=== PATIENT | female | born 1950 | race Caucasian/White ===

== ENCOUNTER 2018-02-18 07:55 | Day surgery (SDC) | payer MEDICARE, OTHER ==
[2018-02-18] MEDS: NS 1,000 ML IV (08:18)
[2018-02-18] MEDS ORDERED: PROPOFOL 200 MG/20 ML VIAL As Ordered (08:52)
[2018-02-18] MEDS ORDERED: METOPROLOL SUCC (TopROL XL) 50MG **XL** TAB PO (09:00)
[2018-02-18] MEDS ORDERED: METOPROLOL SUCC *XL* 25MG TAB (TopROL *XL*) As Ordered (09:02)
[2018-02-18] MEDS ORDERED: LIDOCAINE 2% INJ 100 MG/5 ML SDV (FOR ANES.) As Ordered (09:10)
[2018-02-18] MEDS ORDERED: METOPROLOL SUCC *XL* 25MG TAB (TopROL *XL*) PO (09:30)
== END 2018-02-18 10:15 | disposition home or self-care (01) ==
LOC: M OPP 07:55
DX: K64.0 First degree hemorrhoids (principal); D12.6 Benign neoplasm of colon, unspecified; K57.30 Diverticulosis of large intestine without perforation or abscess without bleeding; Z80.0 Family history of malignant neoplasm of digestive organs; K62.5 Hemorrhage of anus and rectum; R19.4 Change in bowel habit; I10 Essential (primary) hypertension; E78.00 Pure hypercholesterolemia, unspecified; F41.9 Anxiety disorder, unspecified; E03.9 Hypothyroidism, unspecified; Z79.82 Long term (current) use of aspirin; Z79.899 Other long term (current) drug therapy; Z88.8 Allergy status to other drugs, medicaments and biological substances; Z78.0 Asymptomatic menopausal state; Z87.19 Personal history of other diseases of the digestive system
CPT/HCPCS: 45385

== ENCOUNTER 2019-03-25 08:08 | Day surgery (SDC) | payer MEDICARE, OTHER ==
[~2019-03-25] VITALS: Ht 167.6 cm; Wt 86.1 kg
[~2019-03-25 08:08] MED LIST: ASPI81TA26 PO; ATOR1TAB21 PO; DULO1CAP5 PO; GARL1000 PO; GARL10005 PO; LEVO112T2 PO; LIDOCAINE 2% INJ 100 MG/5 ML SDV (FOR ANES.) As Ordered ONE; METO1TAB7 PO; NS 1,000 ML IV ONE; OMEG1CAP16 PO; PROPOFOL 200 MG/20 ML VIAL As Ordered ONE; TRAZ-252 PO; TURM450C PO; TURM500C PO; VITA500030 PO; VITA500046 PO
[2019-03-25] MEDS ORDERED: PROPOFOL 200 MG/20 ML VIAL As Ordered ONE (09:05)
[2019-03-25 09:50] VITALS: BP 122/74
--- NOTE | 2019-03-25 09:50 | ROOR ---
Patient Name: Sherron Rousseau Procedure Date: 03/25/2019 8:55 AM Date of : 1950 Age: 69 Room: [facility] Gender: Female Note Status: Finalized Procedure: Total Colonoscopy to Cecum Indications: High risk colon cancer surveillance: Personal history of adenoma with villous component, Incidental - Rectal bleeding Providers: Jair Chowdary MD Referring MD: Alessandro Jones Np Requesting Provider: Medicines: Monitored Anesthesia Care Complications: No immediate complications. Procedure: Pre-Anesthesia Assessment: - The heart rate, respiratory rate, oxygen saturations, blood pressure, adequacy of pulmonary ventilation, and response to care were monitored throughout the procedure. The Colonoscope was introduced through the anus and advanced to the cecum, identified by appendiceal orifice and ileocecal valve. Findings: The perianal and digital rectal examinations were normal. Non-bleeding internal hemorrhoids were found during retroflexion. The hemorrhoids were small and Grade I (internal hemorrhoids that do not prolapse). Multiple small and large-mouthed diverticula were found in the recto-sigmoid colon, sigmoid colon and descending colon. The exam was otherwise without abnormality on direct and retroflexion views. The terminal ileum appeared normal. Impression: - Non-bleeding internal hemorrhoids. - Diverticulosis in the recto-sigmoid colon, in the sigmoid colon and in the descending colon. - The examination was otherwise normal on direct and retroflexion views. - The examined portion of the ileum was normal. - No specimens collected. - The exam was otherwise normal to the cecum. Recommendation: - Patient has a contact number available for emergencies. The signs and symptoms of potential delayed complications were discussed with the patient. Return to normal activities tomorrow. Written discharge instructions were provided to the patient. - High fiber diet. - Discharge patient to home. - Continue present medications. - Repeat colonoscopy in 5 years for surveillance. - Return to referring physician. - The findings and recommendations were discussed with the patient's family. Jair Chowdary MD Jair Chowdary MD 03/25/2019 9:50:34 AM Electronically signed by Jair Chowdary MD Number of Addenda: 0 Note Initiated On: 03/25/2019 8:55 AM Estimated Blood Loss: Estimated blood loss: none.
== END 2019-03-25 09:53 | disposition home or self-care (01) ==
LOC: M OPP 08:08
PROVIDERS: ATTEND Internal Medicine Gastroenterology
DX: K64.0 First degree hemorrhoids (principal); K57.30 Diverticulosis of large intestine without perforation or abscess without bleeding; K62.5 Hemorrhage of anus and rectum; Z86.010 Personal history of colon polyps; Z09 Encounter for follow-up examination after completed treatment for conditions other than malignant neoplasm; Z79.82 Long term (current) use of aspirin; Z79.899 Other long term (current) drug therapy; Z80.0 Family history of malignant neoplasm of digestive organs; Z88.8 Allergy status to other drugs, medicaments and biological substances

== ENCOUNTER 2022-04-11 10:02 | Inpatient (IN) | payer MEDICARE, OTHER ==
[~2022-04-11] VITALS: Ht 167.6 cm; Wt 86.4 kg
[2022-04-11] VITALS (15 sets, daily range): BP systolic 59–174; BP diastolic 36–104
[~2022-04-11 10:02] MED LIST changes: -LIDOCAINE 2% INJ 100 MG/5 ML SDV (FOR ANES.) As Ordered ONE; -NS 1,000 ML IV ONE; -PROPOFOL 200 MG/20 ML VIAL As Ordered ONE
[2022-04-11] MEDS ORDERED: ETOMIDATE INJ 20MG/10ML VIAL ONE (10:03)
[2022-04-11] MEDS ORDERED: ROCURONIUM BROMIDE 50MG/5ML VIAL ONE (10:03)
[2022-04-11] MEDS ORDERED: TENECTEPLASE 50 MG KIT (TNKase) As Ordered ONE (10:28)
[2022-04-11] MEDS ORDERED: TENECTEPLASE 50 MG KIT (TNKase) IV ONE (10:30)
[2022-04-11 10:42] LABS: HEMATOCRIT 48.3 % (36.0-47.0); HEMOGLOBIN 14.5 g/dl (12.0-15.5); MEAN CORPUSCULAR HEMOGLOBIN 31.7 pg (27.0-33.0); MEAN CORPUSCULAR VOLUME 105.5 fl (80.0-96.0); PLATELET COUNT, AUTOMATED 179 10^3/uL (150-450); RED BLOOD COUNT 4.58 10^6/uL (4.00-5.40); WHITE BLOOD COUNT 21.7 10^3/uL (4.0-10.0)
[2022-04-11] MEDS ORDERED: NOREPINEPHRINE 4MG/4ML AMP As Ordered ONE ×2 (11:00→23:49)
[2022-04-11] MEDS ORDERED: NOREPINEPHRINE 4MG IN D5 250ML 4 MG in IV 1 EA IV SCH ×2 (11:05)
[2022-04-11 11:08] LABS: BILIRUBIN,DIRECT 0.2 MG/DL (<0.4)
[2022-04-11 11:17] LABS: RSV AMPLIFICATION NEGATIVE (NEGATIVE)
[2022-04-11 11:19] LABS: ALBUMIN 3.6 G/DL (3.2-5.2); BILIRUBIN,TOTAL 0.6 MG/DL (0.3-1.2); CALCIUM LEVEL 9.8 MG/DL (8.3-10.6); CREATININE FOR GFR 1.21 MG/DL (0.55-1.30); GLOMERULAR FILTRATION RATE 46.8 (>39); MB/CK RELATIVE INDEX 0.9 (< OR =4); POTASSIUM SERUM 4.5 MMOL/L (3.5-5.1); TOTAL PROTEIN 6.9 G/DL (5.7-8.2)
[2022-04-11 11:33] LABS: ATYPICAL LYMPH 5 % (0-5); BASOPHILS 1 % (0-1); EOSINOPHILS 3 % (0-3); LYMPHOCYTES 27 % (16-44); MONOCYTES 7 % (0-5); NEUTROPHILS 56 % (28-66); PLATELET ESTIMATE NORMAL (NORMAL)
[2022-04-11] MEDS ORDERED: ISOVUE-370 76% 100ML VIAL As Ordered ONE (11:33)
[2022-04-11] MEDS ORDERED: PIPERACILLIN/TAZOBACTAM SOD 4.5 GM in D5W MINI-BAG PLUS 50 ML IV ONE (11:55)
[2022-04-11] MEDS ORDERED: NS 2,480 ML in IV 1 EA IV ONE (11:55)
[2022-04-11] MEDS ORDERED: SODIUM BICARBONATE 8.4% INJ 50ML SYRINGE IV STA (12:25)
[2022-04-11 12:29] LABS: INR 0.99; PROTHROMBIN TIME 13.3 SECONDS (12.5-14.5)
[2022-04-11 12:30] LABS: PARTIAL THROMBOPLASTIN TIME 30.4 SECONDS (24.8-34.2)
[2022-04-11] MEDS ORDERED: MIDAZOLAM INJ 2MG/2ML VIAL (J2250 PER 1MG) IV STA (13:34)
[2022-04-11] MEDS ORDERED: MIDAZOLAM 100MG/100ML-0.9%NACL 100 MG in IV 1 EA IV SCH (13:35)
[2022-04-11] MEDS ORDERED: NS 1,000 ML IV ONE (14:20)
[2022-04-11] MEDS ORDERED: HEPARIN SOD (PORCINE) 5000UNITS/ML 1ML VIAL/SYRINGE IV PRN ×2 (17:15→19:10)
[2022-04-11] MEDS ORDERED: HEPARIN SOD (PORCINE) 5000UNITS/ML 1ML VIAL/SYRINGE IV ONE (17:15)
[2022-04-11] MEDS ORDERED: HEPARIN DRIP 25,000 UNITS in IV 1 EA IV SCH (17:15)
[2022-04-11] MEDS ORDERED: ASPI81TA26 PO (17:52)
[2022-04-11] MEDS ORDERED: DULO1CAP6 PO (17:52)
[2022-04-11] MEDS ORDERED: ATOR40TA75 PO (17:52)
[2022-04-11] MEDS ORDERED: LEVO125T4 PO (17:52)
[2022-04-11] MEDS ORDERED: OMEG10002 PO (18:01)
[2022-04-11] MEDS ORDERED: VITA500030 PO (18:01)
[2022-04-11] MEDS ORDERED: HOME MED LIST COMPLETE! XX SCH (18:05)
[2022-04-11] MEDS ORDERED: VANCOMYCIN HCL 1,000 MG, VIAL MATE ADAPTER 1 EACH in NS 250 ML IV SCH (18:15)
[2022-04-11 19:50] LABS: CHOLESTEROL RISK RATIO 2.34 (<5); HDL CHOLESTEROL 61.4 MG/DL (>40); LDL CHOLESTEROL 66.4 MG/DL (<100)
[2022-04-11 19:54] LABS: FREE T4 1.09 NG/DL (0.89-1.76); THYROID STIMULATING HORMONE 1.481 uIU/ML (0.55-4.78)
[2022-04-11] MEDS: IPRATROPIUM 0.5MG/ALBUTEROL 2.5MG INH SOL UD 3ML (DUONEB) NEB SCH (20:00)
[2022-04-11 20:33] LABS: CALCIUM LEVEL 8.4 MG/DL (8.3-10.6); CREATININE FOR GFR 1.06 MG/DL (0.55-1.30); GLOMERULAR FILTRATION RATE 54.6 (>39); POTASSIUM SERUM 4.5 MMOL/L (3.5-5.1)
[2022-04-11] MEDS: AZITHROMYCIN INJ 500 MG, VIAL MATE ADAPTER 1 EACH in NS 250 ML IV SCH (21:44)
[2022-04-11] MEDS: NS 1,000 ML IV SCH (21:44)
[2022-04-11] MEDS: PANTOPRAZOLE 40MG VIAL IV SCH (21:44)
[2022-04-11] MEDS: MIDAZOLAM 100MG/100ML-0.9%NACL 100 MG in IV 1 EA IV SCH ×2 (21:45→22:49)
[2022-04-11] MEDS ORDERED: AZTREONAM 2 GM in D5W MINI-BAG PLUS 100 ML IV SCH (22:00)
[2022-04-11] MEDS: propofoL 1,000 MG in IV 1 EA IV SCH (22:57)
[2022-04-11 23:12] LABS: HEMATOCRIT 35.8 % (36.0-47.0); MEAN CORPUSCULAR HEMOGLOBIN 31.7 pg (27.0-33.0); MEAN CORPUSCULAR HGB CONC 31.3 g/dl (32.0-36.5); MEAN CORPUSCULAR VOLUME 101.4 fl (80.0-96.0); PLATELET COUNT, AUTOMATED 203 10^3/uL (150-450); RED BLOOD COUNT 3.53 10^6/uL (4.00-5.40); WHITE BLOOD COUNT 12.9 10^3/uL (4.0-10.0)
[2022-04-11 23:13] LABS: HEMOGLOBIN 11.2 g/dl (12.0-15.5)
[2022-04-11] MEDS: METOPROLOL TART 12.5 MG PER 1/2 TAB PO SCH (23:45)
[2022-04-12] VITALS (106 sets, daily range): BP systolic 53–148; BP diastolic 27–84
[2022-04-12] MEDS: AZTREONAM 2 GM in D5W MINI-BAG PLUS 100 ML IV SCH ×4 (00:05→23:58)
[2022-04-12] MEDS: NOREPINEPHRINE BITARTRATE 16 MG in D5W 484 ML IV SCH (00:09)
[2022-04-12] MEDS ORDERED: VANCOMYCIN HCL 1,000 MG, VIAL MATE ADAPTER 1 EACH in NS 250 ML IV ONE ×2 (01:00→02:00)
[2022-04-12] MEDS: CHLORHEXIDINE GLUCONATE 0.12 % 15ML UDC (PERIDEX ORAL RINSE) MT SCH ×3 (01:22→20:08)
[2022-04-12] MEDS ORDERED: NS 250 ML IV ONE ×3 (01:25→04:10)
[2022-04-12] MEDS ORDERED: SODIUM BICARBONATE 8.4% INJ 50ML SYRINGE ONE (03:02)
[2022-04-12] MEDS ORDERED: EPINEPHrine 1MG/10ML SYRINGE 1.5IN ONE (03:02)
[2022-04-12] MEDS: NS 1,000 ML IV SCH (04:14)
[2022-04-12 05:00] LABS: HEMATOCRIT 27.2 % (36.0-47.0); MEAN CORPUSCULAR HEMOGLOBIN 32.6 pg (27.0-33.0); MEAN CORPUSCULAR HGB CONC 32.4 g/dl (32.0-36.5); MEAN CORPUSCULAR VOLUME 100.7 fl (80.0-96.0); PLATELET COUNT, AUTOMATED 179 10^3/uL (150-450); WHITE BLOOD COUNT 13.1 10^3/uL (4.0-10.0)
[2022-04-12 05:03] LABS: HEMOGLOBIN 8.8 g/dl (12.0-15.5)
[2022-04-12 05:24] LABS: ALBUMIN 2.2 G/DL (3.2-5.2); ALKALINE PHOSPHATASE 132 U/L (46-116); ALT/SGPT 244 U/L (7.0-40); AST/SGOT 326 U/L (<34); BILIRUBIN,TOTAL 0.4 MG/DL (0.3-1.2); BLOOD UREA NITROGEN 21 MG/DL (9-23); CALCIUM LEVEL 7.4 MG/DL (8.3-10.6); CARBON DIOXIDE LEVEL 22 MMOL/L (20-31); CHLORIDE LEVEL 115 MMOL/L (98-107); CREATININE FOR GFR 0.95 MG/DL (0.55-1.30); GLOMERULAR FILTRATION RATE > 60.0 (>39); GLUCOSE, FASTING 144 MG/DL (74-106); POTASSIUM SERUM 4.6 MMOL/L (3.5-5.1); SODIUM LEVEL 148 MMOL/L (136-145); TOTAL PROTEIN 4.3 G/DL (5.7-8.2)
[2022-04-12 05:48] LABS: ABG BASE EXCESS -2.9 (-2.0-2.0); ABG HCO3 20.4 MEQ/L (22.0-26.0); ABG O2 SATURATION 98.8 % (95.0-99.0); ABG PARTIAL PRESSURE O2 157.3 mmHg (75.0-100.0); ABG STANDARD HCO3 22.1 MEQ/L (22.0-26.0); ABG TOTAL CO2 21.4 MEQ/L (23.0-31.0); ABG pH (ARTERIAL) 7.451 UNITS (7.350-7.450)
[2022-04-12] MEDS: IPRATROPIUM 0.5MG/ALBUTEROL 2.5MG INH SOL UD 3ML (DUONEB) NEB SCH ×4 (07:40→19:26)
[2022-04-12] MEDS ORDERED: ASPIRIN 81MG CHEW TABLET PO ONE (08:25)
[2022-04-12] MEDS: ACETAMINOPHEN 325MG/10.15ML UDC GT PRN ×2 (08:45→15:52)
[2022-04-12] MEDS: fentaNYL CITRATE/NaCl 1,000 MCG in IV 1 EA IV SCH ×2 (08:47→23:12)
[2022-04-12] MEDS: METOPROLOL TART 12.5 MG PER 1/2 TAB PO SCH ×2 (08:48→20:07)
[2022-04-12] MEDS: ATORVASTATIN 20 MG TAB PO SCH (08:49)
[2022-04-12] MEDS ORDERED: ASPIRIN 81MG ENTERIC TABLET PO SCH (09:00)
[2022-04-12] MEDS ORDERED: NS 500 ML IV ONE (10:20)
[2022-04-12] MEDS: propofoL 1,000 MG in IV 1 EA IV SCH ×2 (10:40→15:52)
[2022-04-12 11:09] LABS: CENTRAL VEN BASE EXCESS -4.1
[2022-04-12] MEDS: VASOPRESSIN INJ 20 UNITS in NS 499 ML IV SCH ×2 (11:09→18:38)
[2022-04-12] MEDS: MIDAZOLAM 100MG/100ML-0.9%NACL 100 MG in IV 1 EA IV SCH (11:24)
[2022-04-12] MEDS: HYDROCORTISONE 100 MG/2 ML VIAL (J1720 PER 1) IV SCH ×2 (11:25→20:07)
[2022-04-12] MEDS: dexmedeTOMidine 200 MCG in IV 1 EA IV SCH (16:10)
[2022-04-12] MEDS ORDERED: ACETAMINOPHEN 1000MG 100ML IV BAG IV ONE (16:15)
[2022-04-12] MEDS: PANTOPRAZOLE 40MG VIAL IV SCH (18:39)
[2022-04-12] MEDS: AZITHROMYCIN INJ 500 MG, VIAL MATE ADAPTER 1 EACH in NS 250 ML IV SCH (20:07)
[2022-04-12] MEDS: VANCOMYCIN HCL 750 MG, VIAL MATE ADAPTER 1 EACH in D5W 250 ML IV SCH (21:18)
[2022-04-12] MEDS: VANCOMYCIN HCL 500 MG in D5W MINI-BAG PLUS 100 ML IV SCH (22:37)
[2022-04-13] VITALS (102 sets, daily range): BP systolic 105–323; BP diastolic 44–323
[2022-04-13] MEDS ORDERED: ACETAMINOPHEN 1000MG 100ML IV BAG IV PRN
[2022-04-13] MEDS: dexmedeTOMidine 200 MCG in IV 1 EA IV SCH ×3 (00:35→22:38)
[2022-04-13] MEDS: NOREPINEPHRINE BITARTRATE 16 MG in D5W 484 ML IV SCH (01:08)
[2022-04-13] MEDS ORDERED: GLUCAGON INJ 1MG VIAL SC PRN (02:00)
[2022-04-13] MEDS ORDERED: GLUCOSE 4GM CHEW TABLET PO PRN (02:00)
[2022-04-13] MEDS: VASOPRESSIN INJ 20 UNITS in NS 499 ML IV SCH ×3 (02:03→17:32)
[2022-04-13] MEDS: HYDROCORTISONE 100 MG/2 ML VIAL (J1720 PER 1) IV SCH ×3 (03:48→19:52)
[2022-04-13 05:57] LABS: ABG HCO3 18.2 MEQ/L (22.0-26.0); ABG O2 SATURATION 98.9 % (95.0-99.0); ABG PARTIAL PRESSURE CO2 34.4 mmHg (35.0-45.0); ABG PARTIAL PRESSURE O2 210.4 mmHg (75.0-100.0); ABG STANDARD HCO3 18.6 MEQ/L (22.0-26.0); ABG TOTAL CO2 19.2 MEQ/L (23.0-31.0); ABG pH (ARTERIAL) 7.341 UNITS (7.350-7.450)
[2022-04-13 06:05] LABS: CK-MB VALUE MASS 2.4 NG/ML (<3.6)
[2022-04-13 06:07] LABS: MAGNESIUM LEVEL 1.4 MG/DL (1.8-2.4)
[2022-04-13 06:20] LABS: ALBUMIN 1.7 G/DL (3.2-5.2); BILIRUBIN,TOTAL 0.2 MG/DL (0.3-1.2); CALCIUM LEVEL 6.4 MG/DL (8.3-10.6); CREATININE FOR GFR 2.28 MG/DL (0.55-1.30); GLOMERULAR FILTRATION RATE 22.5 (>39); MB/CK RELATIVE INDEX 1.18 (< OR =4); POTASSIUM SERUM 4.5 MMOL/L (3.5-5.1); TOTAL PROTEIN 3.8 G/DL (5.7-8.2)
[2022-04-13] MEDS: INSULIN LISPRO (NovoLOG) PER UNIT SC SCH ×4 (06:27→18:14)
[2022-04-13 06:51] LABS: BASO % 0.1 % (0.0-1.0); EOS % 0.1 % (0.0-3.0); LYMPH # 2.9 10^3/uL (1.5-5.0); LYMPH % 15.4 % (24.0-44.0); MEAN CORPUSCULAR HEMOGLOBIN 32.3 pg (27.0-33.0); MEAN CORPUSCULAR HGB CONC 30.7 g/dl (32.0-36.5); MEAN CORPUSCULAR VOLUME 105.1 fl (80.0-96.0); MONO # 1.2 10^3/uL (0.0-0.8); MONO % 6.3 % (2.0-8.0); NEUTROPHILS # 14.5 10^3/uL (1.5-8.5); NEUTROPHILS % 76.5 % (36.0-66.0); PLATELET COUNT, AUTOMATED 190 10^3/uL (150-450); RED BLOOD COUNT 1.58 10^6/uL (4.00-5.40); WHITE BLOOD COUNT 18.9 10^3/uL (4.0-10.0)
[2022-04-13 06:54] LABS: HEMATOCRIT 16.6 % (36.0-47.0); HEMOGLOBIN 5.1 g/dl (12.0-15.5)
[2022-04-13] MEDS: IPRATROPIUM 0.5MG/ALBUTEROL 2.5MG INH SOL UD 3ML (DUONEB) NEB SCH ×4 (07:31→20:10)
[2022-04-13] MEDS ORDERED: FUROSEMIDE 100MG/10ML VIAL IV ONE ×2 (08:05→13:00)
[2022-04-13] MEDS: CHLORHEXIDINE GLUCONATE 0.12 % 15ML UDC (PERIDEX ORAL RINSE) MT SCH ×2 (08:07→21:15)
[2022-04-13] MEDS: AZTREONAM 2 GM in D5W MINI-BAG PLUS 100 ML IV SCH (08:07)
[2022-04-13] MEDS: ATORVASTATIN 20 MG TAB PO SCH (08:08)
[2022-04-13] MEDS: METOPROLOL TART 12.5 MG PER 1/2 TAB PO SCH ×2 (08:09→21:15)
[2022-04-13] MEDS ORDERED: VASOPRESSIN INJ 20UNITS/ML 1ML VIAL As Ordered ONE (10:02)
[2022-04-13] MEDS: propofoL 1,000 MG in IV 1 EA IV SCH ×2 (10:40→22:21)
[2022-04-13] MEDS: fentaNYL CITRATE/NaCl 1,000 MCG in IV 1 EA IV SCH ×2 (12:06→22:38)
[2022-04-13] MEDS: SODIUM BICARBONATE 150 MEQ in STERILE WATER LITER BAG 1,000 ML IV SCH ×2 (12:12→22:50)
[2022-04-13 13:34] LABS: MEAN CORPUSCULAR HEMOGLOBIN 26.8 pg (27.0-33.0); MEAN CORPUSCULAR HGB CONC 32.6 g/dl (32.0-36.5); MEAN CORPUSCULAR VOLUME 82.2 fl (80.0-96.0); PLATELET COUNT, AUTOMATED 143 10^3/uL (150-450); RED BLOOD COUNT 2.13 10^6/uL (4.00-5.40); WHITE BLOOD COUNT 14.1 10^3/uL (4.0-10.0)
[2022-04-13 13:39] LABS: HEMATOCRIT 17.5 % (36.0-47.0); HEMOGLOBIN 5.7 g/dl (12.0-15.5)
[2022-04-13] MEDS: AZTREONAM 1 GM in D5W MINI-BAG PLUS 50 ML IV SCH (17:32)
[2022-04-13] MEDS: MIDAZOLAM 100MG/100ML-0.9%NACL 100 MG in IV 1 EA IV SCH (18:00)
[2022-04-13] MEDS ORDERED: FUROSEMIDE 40MG/4ML VIAL IV ONE (18:00)
[2022-04-13] MEDS: PANTOPRAZOLE 40MG VIAL IV SCH (18:14)
[2022-04-13] MEDS: AZITHROMYCIN INJ 500 MG, VIAL MATE ADAPTER 1 EACH in NS 250 ML IV SCH (19:54)
[2022-04-13] MEDS: VANCOMYCIN HCL 750 MG, VIAL MATE ADAPTER 1 EACH in D5W 250 ML IV SCH (21:00)
[2022-04-13] MEDS: POLYVINYL ALCOHOL OPHTH SOLN 15ML (LIQUITEARS) OU SCH (21:15)
[2022-04-13 22:10] LABS: HEMATOCRIT 24.3 % (36.0-47.0); MEAN CORPUSCULAR HEMOGLOBIN 28.2 pg (27.0-33.0); MEAN CORPUSCULAR HGB CONC 33.7 g/dl (32.0-36.5); MEAN CORPUSCULAR VOLUME 83.5 fl (80.0-96.0); RED BLOOD COUNT 2.91 10^6/uL (4.00-5.40); WHITE BLOOD COUNT 13.7 10^3/uL (4.0-10.0)
[2022-04-13 22:29] LABS: MAGNESIUM LEVEL 1.2 MG/DL (1.8-2.4)
[2022-04-13 22:36] LABS: CALCIUM LEVEL 6.2 MG/DL (8.3-10.6); CREATININE FOR GFR 1.71 MG/DL (0.55-1.30); GLOMERULAR FILTRATION RATE 31.4 (>39); POTASSIUM SERUM 3.2 MMOL/L (3.5-5.1)
[2022-04-13 22:42] LABS: HEMOGLOBIN 8.2 g/dl (12.0-15.5)
[2022-04-13] MEDS: VANCOMYCIN HCL 500 MG in D5W MINI-BAG PLUS 100 ML IV SCH (22:50)
[2022-04-13 22:53] LABS: PLATELET COUNT, AUTOMATED 98 10^3/uL (150-450)
[2022-04-13] MEDS: MAG SULF 1GM/100ML (MAG RUN) 1 GM in IV 1 EA IV SCH (23:24)
[2022-04-14] VITALS (56 sets, daily range): BP systolic 98–208; BP diastolic 52–118
[2022-04-14] MEDS: INSULIN LISPRO (NovoLOG) PER UNIT SC SCH ×5 (00:08→23:55)
[2022-04-14] MEDS: MAG SULF 1GM/100ML (MAG RUN) 1 GM in IV 1 EA IV SCH ×2 (00:08→01:59)
[2022-04-14] MEDS: AZTREONAM 1 GM in D5W MINI-BAG PLUS 50 ML IV SCH ×3 (00:08→15:53)
[2022-04-14] MEDS: NOREPINEPHRINE BITARTRATE 16 MG in D5W 484 ML IV SCH (00:09)
[2022-04-14] MEDS ORDERED: MIDAZOLAM INJ 2MG/2ML VIAL (J2250 PER 1MG) As Ordered ONE (02:18)
[2022-04-14] MEDS: KCL 10MEQ/100ML SWI (KRUN) 10 MEQ in IV 1 EA IV SCH ×3 (02:19→03:56)
[2022-04-14] MEDS: VASOPRESSIN INJ 20 UNITS in NS 499 ML IV SCH ×2 (02:40→04:24)
[2022-04-14] MEDS: MIDAZOLAM INJ 2MG/2ML VIAL (J2250 PER 1MG) IV PRN ×5 (03:29→21:49)
[2022-04-14] MEDS: propofoL 1,000 MG in IV 1 EA IV SCH (03:50)
[2022-04-14] MEDS: HYDROCORTISONE 100 MG/2 ML VIAL (J1720 PER 1) IV SCH ×3 (03:56→19:55)
[2022-04-14] MEDS: dexmedeTOMidine 200 MCG in IV 1 EA IV SCH ×9 (04:25→22:56)
[2022-04-14 05:37] LABS: ABG BASE EXCESS 0.5 (-2.0-2.0); ABG HCO3 24.4 MEQ/L (22.0-26.0); ABG O2 SATURATION 98.1 % (95.0-99.0); ABG PARTIAL PRESSURE CO2 36.4 mmHg (35.0-45.0); ABG PARTIAL PRESSURE O2 125.2 mmHg (75.0-100.0); ABG TOTAL CO2 25.6 MEQ/L (23.0-31.0); ABG pH (ARTERIAL) 7.445 UNITS (7.350-7.450)
[2022-04-14 05:45] LABS: BASO % 0.2 % (0.0-1.0); EOS % 0.1 % (0.0-3.0); HEMATOCRIT 22.1 % (36.0-47.0); HEMOGLOBIN 7.6 g/dl (12.0-15.5); LYMPH # 1.3 10^3/uL (1.5-5.0); MEAN CORPUSCULAR HEMOGLOBIN 28.5 pg (27.0-33.0); MEAN CORPUSCULAR HGB CONC 34.4 g/dl (32.0-36.5); MEAN CORPUSCULAR VOLUME 82.8 fl (80.0-96.0); MONO # 0.6 10^3/uL (0.0-0.8); MONO % 4.8 % (2.0-8.0); NEUTROPHILS # 10.4 10^3/uL (1.5-8.5); NEUTROPHILS % 83.7 % (36.0-66.0); RED BLOOD COUNT 2.67 10^6/uL (4.00-5.40); WHITE BLOOD COUNT 12.4 10^3/uL (4.0-10.0)
[2022-04-14 05:55] LABS: PLATELET COUNT, AUTOMATED 92 10^3/uL (150-450)
[2022-04-14 06:13] LABS: ALBUMIN 1.6 G/DL (3.2-5.2); BILIRUBIN,TOTAL 0.5 MG/DL (0.3-1.2); CALCIUM LEVEL 6.1 MG/DL (8.3-10.6); CK-MB VALUE MASS 1.5 NG/ML (<3.6); CREATININE FOR GFR 1.42 MG/DL (0.55-1.30); GLOMERULAR FILTRATION RATE 38.9 (>39); MB/CK RELATIVE INDEX 0.35 (< OR =4); POTASSIUM SERUM 3.3 MMOL/L (3.5-5.1); TOTAL PROTEIN 3.7 G/DL (5.7-8.2)
[2022-04-14 06:56] LABS: MAGNESIUM LEVEL 1.7 MG/DL (1.8-2.4)
[2022-04-14] MEDS ORDERED: MAG SULF 1GM/100ML (MAG RUN) 1 GM in IV 1 EA IV ONE (07:50)
[2022-04-14] MEDS: IPRATROPIUM 0.5MG/ALBUTEROL 2.5MG INH SOL UD 3ML (DUONEB) NEB SCH ×4 (08:40→19:22)
[2022-04-14] MEDS: ATORVASTATIN 20 MG TAB PO SCH (09:01)
[2022-04-14] MEDS: METOPROLOL TART 12.5 MG PER 1/2 TAB PO SCH ×2 (09:01→21:03)
[2022-04-14] MEDS: POLYVINYL ALCOHOL OPHTH SOLN 15ML (LIQUITEARS) OU SCH ×3 (09:02→21:03)
[2022-04-14] MEDS: CHLORHEXIDINE GLUCONATE 0.12 % 15ML UDC (PERIDEX ORAL RINSE) MT SCH ×2 (09:02→21:03)
[2022-04-14] MEDS ORDERED: POTASSIUM CHLORIDE 10% LIQ 20MEQ/15ML UDC PO ONE (10:00)
[2022-04-14] MEDS: fentaNYL CITRATE/NaCl 1,000 MCG in IV 1 EA IV SCH (12:49)
[2022-04-14] MEDS ORDERED: MIDAZOLAM INJ 2MG/2ML VIAL (J2250 PER 1MG) IV PRN (17:00)
[2022-04-14] MEDS: PANTOPRAZOLE 40MG VIAL IV SCH (18:14)
[2022-04-14] MEDS: METOPROLOL 5 MG/5 ML VIAL IV PRN (19:35)
[2022-04-14] MEDS ORDERED: LORazepam 2 MG/ML VIAL IV STA (19:45)
[2022-04-14] MEDS: AZITHROMYCIN INJ 500 MG, VIAL MATE ADAPTER 1 EACH in NS 250 ML IV SCH (19:55)
[2022-04-14] MEDS: VANCOMYCIN HCL 750 MG, VIAL MATE ADAPTER 1 EACH in D5W 250 ML IV SCH (22:06)
[2022-04-14] MEDS: VANCOMYCIN HCL 500 MG in D5W MINI-BAG PLUS 100 ML IV SCH (23:41)
[2022-04-15] VITALS (80 sets, daily range): BP systolic 94–209; BP diastolic 51–120
[2022-04-15] MEDS: dexmedeTOMidine 200 MCG in IV 1 EA IV SCH ×7 (00:57→12:39)
[2022-04-15] MEDS: MIDAZOLAM INJ 2MG/2ML VIAL (J2250 PER 1MG) IV PRN (00:58)
[2022-04-15] MEDS: AZTREONAM 1 GM in D5W MINI-BAG PLUS 50 ML IV SCH ×4 (01:05→23:52)
[2022-04-15] MEDS: fentaNYL CITRATE/NaCl 1,000 MCG in IV 1 EA IV SCH (02:06)
[2022-04-15] MEDS: HYDROCORTISONE 100 MG/2 ML VIAL (J1720 PER 1) IV SCH (03:28)
[2022-04-15] MEDS: LORazepam 2 MG/ML VIAL IV PRN ×3 (03:29→09:28)
[2022-04-15 03:59] LABS: BASO % 0.2 % (0.0-1.0); EOS % 0.1 % (0.0-3.0); HEMOGLOBIN 7.1 g/dl (12.0-15.5); LYMPH % 8.2 % (24.0-44.0); MEAN CORPUSCULAR HEMOGLOBIN 28.3 pg (27.0-33.0); MEAN CORPUSCULAR VOLUME 83.3 fl (80.0-96.0); MONO # 0.8 10^3/uL (0.0-0.8); MONO % 6.5 % (2.0-8.0); NEUTROPHILS # 9.5 10^3/uL (1.5-8.5); NEUTROPHILS % 82.6 % (36.0-66.0); RED BLOOD COUNT 2.51 10^6/uL (4.00-5.40); WHITE BLOOD COUNT 11.5 10^3/uL (4.0-10.0)
[2022-04-15 04:06] LABS: HEMATOCRIT 20.9 % (36.0-47.0); PLATELET COUNT, AUTOMATED 81 10^3/uL (150-450)
[2022-04-15 04:38] LABS: MAGNESIUM LEVEL 2.2 MG/DL (1.8-2.4)
[2022-04-15 04:52] LABS: ALBUMIN 1.9 G/DL (3.2-5.2); ALKALINE PHOSPHATASE 91 U/L (46-116); ALT/SGPT 69 U/L (7.0-40); AST/SGOT 47 U/L (<34); BILIRUBIN,TOTAL 0.7 MG/DL (0.3-1.2); BLOOD UREA NITROGEN 28 MG/DL (9-23); CARBON DIOXIDE LEVEL 26 MMOL/L (20-31); CHLORIDE LEVEL 110 MMOL/L (98-107); CREATININE FOR GFR 0.82 MG/DL (0.55-1.30); GLOMERULAR FILTRATION RATE > 60.0 (>39); GLUCOSE, FASTING 142 MG/DL (74-106); POTASSIUM SERUM 3.6 MMOL/L (3.5-5.1); SODIUM LEVEL 142 MMOL/L (136-145); TOTAL PROTEIN 4.3 G/DL (5.7-8.2)
[2022-04-15 06:28] LABS: ABG BASE EXCESS -7.5 (-2.0-2.0); ABG HCO3 15.1 MEQ/L (22.0-26.0); ABG O2 SATURATION 97.7 % (95.0-99.0); ABG PARTIAL PRESSURE O2 122.7 mmHg (75.0-100.0); ABG STANDARD HCO3 18.2 MEQ/L (22.0-26.0); ABG TOTAL CO2 15.6 MEQ/L (23.0-31.0); ABG pH (ARTERIAL) 7.526 UNITS (7.350-7.450)
[2022-04-15 06:31] LABS: ABG PARTIAL PRESSURE CO2 18.6 mmHg (35.0-45.0)
[2022-04-15] MEDS: METOPROLOL 5 MG/5 ML VIAL IV PRN ×2 (06:31→07:53)
[2022-04-15] MEDS: INSULIN LISPRO (NovoLOG) PER UNIT SC SCH ×4 (06:37→23:52)
[2022-04-15] MEDS: IPRATROPIUM 0.5MG/ALBUTEROL 2.5MG INH SOL UD 3ML (DUONEB) NEB SCH ×4 (07:51→18:57)
[2022-04-15] MEDS: CHLORHEXIDINE GLUCONATE 0.12 % 15ML UDC (PERIDEX ORAL RINSE) MT SCH ×2 (08:26→21:17)
[2022-04-15] MEDS: ATORVASTATIN 20 MG TAB PO SCH (08:27)
[2022-04-15] MEDS: METOPROLOL TART 12.5 MG PER 1/2 TAB PO SCH (08:27)
[2022-04-15] MEDS: POLYVINYL ALCOHOL OPHTH SOLN 15ML (LIQUITEARS) OU SCH ×3 (08:27→21:18)
[2022-04-15] MEDS ORDERED: POTASSIUM CHLORIDE 10MEQ SR TABLET PO ONE (08:45)
[2022-04-15] MEDS ORDERED: ASPIRIN 81MG ENTERIC TABLET PO SCH (09:00)
[2022-04-15] MEDS ORDERED: POTASSIUM CHLORIDE 10% LIQ 20MEQ/15ML UDC PO ONE (09:05)
[2022-04-15] MEDS ORDERED: FUROSEMIDE 100MG/10ML VIAL IV ONE (12:10)
[2022-04-15] MEDS ORDERED: PROPOFOL 1,000 MG/100 ML VIAL As Ordered ONE (12:54)
[2022-04-15] MEDS: propofoL 1,000 MG in IV 1 EA IV SCH ×2 (12:58→22:58)
[2022-04-15] MEDS: HEPARIN DRIP 25,000 UNITS in IV 1 EA IV SCH (14:02)
[2022-04-15] MEDS: ASPIRIN 81MG CHEW TABLET PEG SCH (16:16)
[2022-04-15] MEDS: PANTOPRAZOLE 40MG VIAL IV SCH (18:08)
[2022-04-15] MEDS: METOPROLOL TART 50 MG TAB PO SCH (18:11)
[2022-04-15] MEDS: fentaNYL 100 MCG/2 ML INJECTION IV PRN (19:03)
[2022-04-15] MEDS ORDERED: HEPARIN SOD (PORCINE) 5000UNITS/ML 1ML VIAL/SYRINGE IV PRN (19:25)
[2022-04-15] MEDS ORDERED: HEPARIN DRIP 25,000 UNITS in IV 1 EA IV SCH (19:25)
[2022-04-15] MEDS: VANCOMYCIN HCL 750 MG, VIAL MATE ADAPTER 1 EACH in D5W 250 ML IV SCH (21:18)
[2022-04-15] MEDS ORDERED: METOPROLOL TART 25 MG TABLET PO ONE (21:45)
[2022-04-15] MEDS: VANCOMYCIN HCL 500 MG in D5W MINI-BAG PLUS 100 ML IV SCH (21:51)
[2022-04-16] VITALS (41 sets, daily range): BP systolic 133–189; BP diastolic 69–97
[2022-04-16] MEDS: propofoL 1,000 MG in IV 1 EA IV SCH ×4 (02:36→21:39)
[2022-04-16 03:53] LABS: INR 1.14; PROTHROMBIN TIME 14.8 SECONDS (12.5-14.5)
[2022-04-16 03:55] LABS: PARTIAL THROMBOPLASTIN TIME 106.2 SECONDS (24.8-34.2)
[2022-04-16 05:23] LABS: BASO % 0.3 % (0.0-1.0); EOS # 0.3 10^3/uL (0.0-0.5); EOS % 1.9 % (0.0-3.0); HEMATOCRIT 22.5 % (36.0-47.0); HEMOGLOBIN 7.7 g/dl (12.0-15.5); LYMPH # 2.5 10^3/uL (1.5-5.0); LYMPH % 18.6 % (24.0-44.0); MEAN CORPUSCULAR HEMOGLOBIN 29.3 pg (27.0-33.0); MEAN CORPUSCULAR HGB CONC 34.2 g/dl (32.0-36.5); MEAN CORPUSCULAR VOLUME 85.6 fl (80.0-96.0); MONO # 0.9 10^3/uL (0.0-0.8); MONO % 6.6 % (2.0-8.0); NEUTROPHILS # 9.3 10^3/uL (1.5-8.5); NEUTROPHILS % 68.9 % (36.0-66.0); PLATELET COUNT, AUTOMATED 132 10^3/uL (150-450); RED BLOOD COUNT 2.63 10^6/uL (4.00-5.40); WHITE BLOOD COUNT 13.4 10^3/uL (4.0-10.0)
[2022-04-16 05:50] LABS: ABG BASE EXCESS 1.7 (-2.0-2.0); ABG HCO3 24.6 MEQ/L (22.0-26.0); ABG PARTIAL PRESSURE CO2 31.4 mmHg (35.0-45.0); ABG PARTIAL PRESSURE O2 112.3 mmHg (75.0-100.0); ABG TOTAL CO2 25.5 MEQ/L (23.0-31.0); ABG pH (ARTERIAL) 7.511 UNITS (7.350-7.450)
[2022-04-16 05:55] LABS: MAGNESIUM LEVEL 2.1 MG/DL (1.8-2.4)
[2022-04-16 05:57] LABS: ALBUMIN 2.2 G/DL (3.2-5.2); ALKALINE PHOSPHATASE 98 U/L (46-116); ALT/SGPT 62 U/L (7.0-40); AST/SGOT 63 U/L (<34); BILIRUBIN,TOTAL 0.9 MG/DL (0.3-1.2); BLOOD UREA NITROGEN 19 MG/DL (9-23); CALCIUM LEVEL 7.5 MG/DL (8.3-10.6); CARBON DIOXIDE LEVEL 23 MMOL/L (20-31); CHLORIDE LEVEL 110 MMOL/L (98-107); CREATININE FOR GFR 0.71 MG/DL (0.55-1.30); GLOMERULAR FILTRATION RATE > 60.0 (>39); GLUCOSE, FASTING 100 MG/DL (74-106); POTASSIUM SERUM 3.5 MMOL/L (3.5-5.1); SODIUM LEVEL 144 MMOL/L (136-145); TOTAL PROTEIN 4.3 G/DL (5.7-8.2)
[2022-04-16] MEDS: INSULIN LISPRO (NovoLOG) PER UNIT SC SCH ×3 (06:00→18:00)
[2022-04-16] MEDS: IPRATROPIUM 0.5MG/ALBUTEROL 2.5MG INH SOL UD 3ML (DUONEB) NEB SCH ×4 (07:14→19:31)
[2022-04-16] MEDS: AZTREONAM 1 GM in D5W MINI-BAG PLUS 50 ML IV SCH (07:39)
[2022-04-16] MEDS: HEPARIN DRIP 25,000 UNITS in IV 1 EA IV SCH ×2 (08:54→20:41)
[2022-04-16] MEDS: CHLORHEXIDINE GLUCONATE 0.12 % 15ML UDC (PERIDEX ORAL RINSE) MT SCH ×2 (09:08→20:14)
[2022-04-16] MEDS: ASPIRIN 81MG CHEW TABLET PEG SCH (09:08)
[2022-04-16] MEDS: ATORVASTATIN 20 MG TAB PO SCH (09:09)
[2022-04-16] MEDS: METOPROLOL TART 50 MG TAB PO SCH ×2 (09:09→20:14)
[2022-04-16] MEDS: POLYVINYL ALCOHOL OPHTH SOLN 15ML (LIQUITEARS) OU SCH ×3 (09:10→20:14)
[2022-04-16 09:52] LABS: INR 1.11; PROTHROMBIN TIME 14.5 SECONDS (12.5-14.5)
[2022-04-16] MEDS: fentaNYL 100 MCG/2 ML INJECTION IV PRN ×3 (09:57→20:13)
[2022-04-16 11:23] LABS: PARTIAL THROMBOPLASTIN TIME 147.5 SECONDS (24.8-34.2)
[2022-04-16] MEDS: METOPROLOL 5 MG/5 ML VIAL IV PRN ×2 (12:19→23:20)
[2022-04-16] MEDS: AZTREONAM 2 GM in D5W MINI-BAG PLUS 100 ML IV SCH ×2 (15:56→23:20)
[2022-04-16] MEDS: PANTOPRAZOLE 40MG VIAL IV SCH (18:21)
[2022-04-16] MEDS ORDERED: METOCLOPRAMIDE INJ 10MG/2ML VIAL IV ONE (21:50)
[2022-04-17] VITALS (29 sets, daily range): BP systolic 133–185; BP diastolic 66–88
[2022-04-17] MEDS: fentaNYL 100 MCG/2 ML INJECTION IV PRN ×2 (01:40→04:12)
[2022-04-17] MEDS: propofoL 1,000 MG in IV 1 EA IV SCH (04:15)
[2022-04-17 04:19] LABS: BASO % 0.1 % (0.0-1.0); EOS # 0.4 10^3/uL (0.0-0.5); EOS % 2.9 % (0.0-3.0); HEMATOCRIT 21.2 % (36.0-47.0); LYMPH # 1.9 10^3/uL (1.5-5.0); LYMPH % 14.5 % (24.0-44.0); MONO # 0.9 10^3/uL (0.0-0.8); MONO % 7.2 % (2.0-8.0); NEUTROPHILS # 9.3 10^3/uL (1.5-8.5); NEUTROPHILS % 71.6 % (36.0-66.0); PLATELET COUNT, AUTOMATED 149 10^3/uL (150-450); RED BLOOD COUNT 2.41 10^6/uL (4.00-5.40)
[2022-04-17 05:34] LABS: ALBUMIN 2.1 G/DL (3.2-5.2); ALKALINE PHOSPHATASE 96 U/L (46-116); ALT/SGPT 56 U/L (7.0-40); AST/SGOT 65 U/L (<34); BILIRUBIN,TOTAL 1.3 MG/DL (0.3-1.2); BLOOD UREA NITROGEN 12 MG/DL (9-23); CALCIUM LEVEL 7.5 MG/DL (8.3-10.6); CARBON DIOXIDE LEVEL 26 MMOL/L (20-31); CHLORIDE LEVEL 111 MMOL/L (98-107); CREATININE FOR GFR 0.65 MG/DL (0.55-1.30); GLOMERULAR FILTRATION RATE > 60.0 (>39); GLUCOSE, FASTING 102 MG/DL (74-106); POTASSIUM SERUM 3.5 MMOL/L (3.5-5.1); SODIUM LEVEL 146 MMOL/L (136-145); TOTAL PROTEIN 4.5 G/DL (5.7-8.2)
[2022-04-17] MEDS: INSULIN LISPRO (NovoLOG) PER UNIT SC SCH ×4 (05:55→18:14)
[2022-04-17 05:59] LABS: ABG BASE EXCESS 1.9 (-2.0-2.0); ABG HCO3 24.7 MEQ/L (22.0-26.0); ABG O2 SATURATION 98.1 % (95.0-99.0); ABG PARTIAL PRESSURE CO2 30.6 mmHg (35.0-45.0); ABG PARTIAL PRESSURE O2 106.2 mmHg (75.0-100.0); ABG STANDARD HCO3 26.2 MEQ/L (22.0-26.0); ABG TOTAL CO2 25.6 MEQ/L (23.0-31.0); ABG pH (ARTERIAL) 7.524 UNITS (7.350-7.450)
[2022-04-17] MEDS: IPRATROPIUM 0.5MG/ALBUTEROL 2.5MG INH SOL UD 3ML (DUONEB) NEB SCH ×4 (07:29→19:29)
[2022-04-17] MEDS ORDERED: FUROSEMIDE 100MG/10ML VIAL IV ONE (08:10)
[2022-04-17] MEDS: POLYVINYL ALCOHOL OPHTH SOLN 15ML (LIQUITEARS) OU SCH ×3 (08:38→21:07)
[2022-04-17] MEDS: CHLORHEXIDINE GLUCONATE 0.12 % 15ML UDC (PERIDEX ORAL RINSE) MT SCH ×2 (08:38→21:06)
[2022-04-17] MEDS: AZTREONAM 2 GM in D5W MINI-BAG PLUS 100 ML IV SCH ×3 (08:39→23:56)
[2022-04-17] MEDS: ATORVASTATIN 20 MG TAB PO SCH (08:39)
[2022-04-17] MEDS: ASPIRIN 81MG CHEW TABLET PEG SCH (08:39)
[2022-04-17] MEDS: METOPROLOL TART 50 MG TAB PO SCH ×3 (08:47→21:06)
[2022-04-17 11:29] LABS: ABG BASE EXCESS 3.3 (-2.0-2.0); ABG HCO3 25.7 MEQ/L (22.0-26.0); ABG O2 SATURATION 97.4 % (95.0-99.0); ABG PARTIAL PRESSURE CO2 31.4 mmHg (35.0-45.0); ABG PARTIAL PRESSURE O2 95.6 mmHg (75.0-100.0); ABG STANDARD HCO3 27.5 MEQ/L (22.0-26.0); ABG TOTAL CO2 26.7 MEQ/L (23.0-31.0); ABG pH (ARTERIAL) 7.531 UNITS (7.350-7.450)
[2022-04-17] MEDS: METOPROLOL 5 MG/5 ML VIAL IV PRN (11:43)
[2022-04-17 17:07] LABS: BODY FLUID CULTURE Not indicated. (.); LEGIONELLA ANTIGEN URINE Negative (Negative); ORGANISM ID Not indicated. (.); SPECIMEN SOURCE Urine (.); URINE STREP PNEUMONIAE ANTIGEN Negative (Negative)
[2022-04-17] MEDS: PANTOPRAZOLE 40MG VIAL IV SCH (18:14)
[2022-04-18] VITALS (28 sets, daily range): BP systolic 135–227; BP diastolic 67–107
[2022-04-18 05:26] LABS: BASO # 0.1 10^3/uL (0.0-0.2); BASO % 0.4 % (0.0-1.0); EOS # 0.5 10^3/uL (0.0-0.5); EOS % 3.4 % (0.0-3.0); HEMATOCRIT 27.6 % (36.0-47.0); LYMPH # 1.8 10^3/uL (1.5-5.0); LYMPH % 12.3 % (24.0-44.0); MEAN CORPUSCULAR HEMOGLOBIN 28.9 pg (27.0-33.0); MEAN CORPUSCULAR HGB CONC 33.3 g/dl (32.0-36.5); MEAN CORPUSCULAR VOLUME 86.8 fl (80.0-96.0); MONO # 1.1 10^3/uL (0.0-0.8); MONO % 7.5 % (2.0-8.0); NEUTROPHILS # 10.3 10^3/uL (1.5-8.5); NEUTROPHILS % 71.4 % (36.0-66.0); PLATELET COUNT, AUTOMATED 203 10^3/uL (150-450); RED BLOOD COUNT 3.18 10^6/uL (4.00-5.40); WHITE BLOOD COUNT 14.5 10^3/uL (4.0-10.0)
[2022-04-18 05:31] LABS: HEMOGLOBIN 9.2 g/dl (12.0-15.5)
[2022-04-18 06:00] LABS: ABG BASE EXCESS 2.9 (-2.0-2.0); ABG HCO3 25.4 MEQ/L (22.0-26.0); ABG O2 SATURATION 94.9 % (95.0-99.0); ABG PARTIAL PRESSURE CO2 31.6 mmHg (35.0-45.0); ABG PARTIAL PRESSURE O2 67.9 mmHg (75.0-100.0); ABG TOTAL CO2 26.4 MEQ/L (23.0-31.0); ABG pH (ARTERIAL) 7.523 UNITS (7.350-7.450)
[2022-04-18] MEDS: INSULIN LISPRO (NovoLOG) PER UNIT SC SCH ×4 (06:00→18:00)
[2022-04-18 06:10] LABS: ALBUMIN 2.2 G/DL (3.2-5.2); ALKALINE PHOSPHATASE 112 U/L (46-116); ALT/SGPT 54 U/L (7.0-40); AST/SGOT 56 U/L (<34); BILIRUBIN,TOTAL 2.2 MG/DL (0.3-1.2); BLOOD UREA NITROGEN 16 MG/DL (9-23); CALCIUM LEVEL 7.8 MG/DL (8.3-10.6); CARBON DIOXIDE LEVEL 26 MMOL/L (20-31); CHLORIDE LEVEL 109 MMOL/L (98-107); CREATININE FOR GFR 0.62 MG/DL (0.55-1.30); GLOMERULAR FILTRATION RATE > 60.0 (>39); GLUCOSE, FASTING 93 MG/DL (74-106); POTASSIUM SERUM 3.3 MMOL/L (3.5-5.1); SODIUM LEVEL 145 MMOL/L (136-145); TOTAL PROTEIN 4.7 G/DL (5.7-8.2)
[2022-04-18] MEDS ORDERED: FUROSEMIDE 100MG/10ML VIAL IV ONE (07:35)
[2022-04-18] MEDS: IPRATROPIUM 0.5MG/ALBUTEROL 2.5MG INH SOL UD 3ML (DUONEB) NEB SCH ×4 (07:56→19:02)
[2022-04-18] MEDS ORDERED: LORazepam 2 MG/ML VIAL IV STA (08:05)
[2022-04-18] MEDS: HEPARIN DRIP 25,000 UNITS in IV 1 EA IV SCH (08:09)
[2022-04-18] MEDS: AZTREONAM 2 GM in D5W MINI-BAG PLUS 100 ML IV SCH ×2 (08:11→16:41)
[2022-04-18] MEDS: METOPROLOL 5 MG/5 ML VIAL IV PRN (08:23)
[2022-04-18] MEDS ORDERED: METOPROLOL 5 MG/5 ML VIAL IV PRN (08:55)
[2022-04-18] MEDS: ASPIRIN 81MG CHEW TABLET PEG SCH (09:00)
[2022-04-18] MEDS: CHLORHEXIDINE GLUCONATE 0.12 % 15ML UDC (PERIDEX ORAL RINSE) MT SCH ×2 (09:00→20:00)
[2022-04-18] MEDS: ATORVASTATIN 20 MG TAB PO SCH (09:00)
[2022-04-18] MEDS: METOPROLOL TART 50 MG TAB PO SCH ×2 (09:00→16:00)
[2022-04-18 09:14] LABS: ABG BASE EXCESS 1.7 (-2.0-2.0); ABG O2 SATURATION 98.6 % (95.0-99.0); ABG PARTIAL PRESSURE CO2 34.6 mmHg (35.0-45.0); ABG PARTIAL PRESSURE O2 147.4 mmHg (75.0-100.0); ABG pH (ARTERIAL) 7.476 UNITS (7.350-7.450)
[2022-04-18] MEDS: POLYVINYL ALCOHOL OPHTH SOLN 15ML (LIQUITEARS) OU SCH ×3 (10:11→20:25)
[2022-04-18] MEDS: KCL 20MEQ IN 100ML SWI (KRUN) 20 MEQ in IV 1 EA IV SCH ×4 (14:15→15:23)
[2022-04-18] MEDS ORDERED: FUROSEMIDE 40MG/4ML VIAL IV ONE (17:40)
[2022-04-18] MEDS: PANTOPRAZOLE 40MG VIAL IV SCH (18:14)
[2022-04-18] MEDS ORDERED: NYSTATIN 100,000 UNITS/GM TOPICAL PWD 15GM TOP SCH (21:00)
[2022-04-18 21:27] LABS: BLOOD UREA NITROGEN 18 MG/DL (9-23); CALCIUM LEVEL 8.1 MG/DL (8.3-10.6); CARBON DIOXIDE LEVEL 26 MMOL/L (20-31); CHLORIDE LEVEL 108 MMOL/L (98-107); CREATININE FOR GFR 0.69 MG/DL (0.55-1.30); GLOMERULAR FILTRATION RATE > 60.0 (>39); GLUCOSE, FASTING 88 MG/DL (74-106); MAGNESIUM LEVEL 1.8 MG/DL (1.8-2.4); POTASSIUM SERUM 3.5 MMOL/L (3.5-5.1); SODIUM LEVEL 145 MMOL/L (136-145)
[2022-04-19] VITALS (15 sets, daily range): BP systolic 136–178; BP diastolic 72–90; O2SAT 93–96
[2022-04-19] MEDS: AZTREONAM 2 GM in D5W MINI-BAG PLUS 100 ML IV SCH ×3 (00:28→15:57)
[2022-04-19 04:59] LABS: BASO # 0.1 10^3/uL (0.0-0.2); BASO % 0.3 % (0.0-1.0); EOS # 0.8 10^3/uL (0.0-0.5); EOS % 5.4 % (0.0-3.0); HEMATOCRIT 27.7 % (36.0-47.0); HEMOGLOBIN 9.1 g/dl (12.0-15.5); LYMPH % 13.5 % (24.0-44.0); MEAN CORPUSCULAR HEMOGLOBIN 29.4 pg (27.0-33.0); MEAN CORPUSCULAR HGB CONC 32.9 g/dl (32.0-36.5); MEAN CORPUSCULAR VOLUME 89.4 fl (80.0-96.0); MONO # 1.1 10^3/uL (0.0-0.8); MONO % 7.3 % (2.0-8.0); NEUTROPHILS # 10.2 10^3/uL (1.5-8.5); NEUTROPHILS % 69.3 % (36.0-66.0); PLATELET COUNT, AUTOMATED 269 10^3/uL (150-450); WHITE BLOOD COUNT 14.7 10^3/uL (4.0-10.0)
[2022-04-19 05:27] LABS: ALBUMIN 2.2 G/DL (3.2-5.2); ALKALINE PHOSPHATASE 125 U/L (46-116); ALT/SGPT 50 U/L (7.0-40); AST/SGOT 49 U/L (<34); BILIRUBIN,TOTAL 1.8 MG/DL (0.3-1.2); BLOOD UREA NITROGEN 21 MG/DL (9-23); CALCIUM LEVEL 8.2 MG/DL (8.3-10.6); CARBON DIOXIDE LEVEL 27 MMOL/L (20-31); CHLORIDE LEVEL 109 MMOL/L (98-107); CREATININE FOR GFR 0.63 MG/DL (0.55-1.30); GLOMERULAR FILTRATION RATE > 60.0 (>39); GLUCOSE, FASTING 89 MG/DL (74-106); POTASSIUM SERUM 3.3 MMOL/L (3.5-5.1); SODIUM LEVEL 145 MMOL/L (136-145); TOTAL PROTEIN 4.8 G/DL (5.7-8.2)
[2022-04-19] MEDS: INSULIN LISPRO (NovoLOG) PER UNIT SC SCH ×3 (05:47→11:44)
[2022-04-19 05:48] LABS: ABG BASE EXCESS 3.2 (-2.0-2.0); ABG HCO3 26.2 MEQ/L (22.0-26.0); ABG O2 SATURATION 93.4 % (95.0-99.0); ABG PARTIAL PRESSURE O2 63.3 mmHg (75.0-100.0); ABG STANDARD HCO3 27.3 MEQ/L (22.0-26.0); ABG TOTAL CO2 27.3 MEQ/L (23.0-31.0); ABG pH (ARTERIAL) 7.505 UNITS (7.350-7.450)
[2022-04-19] MEDS ORDERED: KCL 20MEQ IN 100ML SWI (KRUN) 20 MEQ in IV 1 EA IV ONE ×2 (06:00)
[2022-04-19] MEDS: HEPARIN DRIP 25,000 UNITS in IV 1 EA IV SCH (06:02)
[2022-04-19] MEDS: IPRATROPIUM 0.5MG/ALBUTEROL 2.5MG INH SOL UD 3ML (DUONEB) NEB SCH ×4 (07:14→19:34)
[2022-04-19] MEDS: POLYVINYL ALCOHOL OPHTH SOLN 15ML (LIQUITEARS) OU SCH ×3 (08:39→20:23)
[2022-04-19] MEDS: METOPROLOL TART 50 MG TAB PO SCH ×3 (10:18→20:23)
[2022-04-19] MEDS: ASPIRIN 81MG CHEW TABLET PEG SCH (10:18)
[2022-04-19] MEDS: ATORVASTATIN 20 MG TAB PO SCH (10:19)
[2022-04-19] MEDS: DULoxetine 30MG CAPSULE (CYMBALTA) PO SCH (11:48)
[2022-04-19] MEDS: PANTOPRAZOLE 40MG TAB (PROTONIX) PO SCH (11:49)
[2022-04-20] VITALS (8 sets, daily range): BP systolic 112–149; BP diastolic 63–86; O2SAT 92–94
[2022-04-20] MEDS: AZTREONAM 2 GM in D5W MINI-BAG PLUS 100 ML IV SCH ×3 (00:06→17:39)
[2022-04-20] MEDS: LEVOTHYROXINE 125MCG TABLET (0.125MG) PO SCH (05:13)
[2022-04-20] MEDS: HEPARIN DRIP 25,000 UNITS in IV 1 EA IV SCH (05:19)
[2022-04-20 05:30] LABS: HEMATOCRIT 26.5 % (36.0-47.0); HEMOGLOBIN 8.6 g/dl (12.0-15.5); MEAN CORPUSCULAR HEMOGLOBIN 29.6 pg (27.0-33.0); MEAN CORPUSCULAR HGB CONC 32.5 g/dl (32.0-36.5); MEAN CORPUSCULAR VOLUME 91.1 fl (80.0-96.0); PLATELET COUNT, AUTOMATED 295 10^3/uL (150-450); RED BLOOD COUNT 2.91 10^6/uL (4.00-5.40); WHITE BLOOD COUNT 13.2 10^3/uL (4.0-10.0)
[2022-04-20 05:55] LABS: BLOOD UREA NITROGEN 19 MG/DL (9-23); CALCIUM LEVEL 8.2 MG/DL (8.3-10.6); CARBON DIOXIDE LEVEL 29 MMOL/L (20-31); CHLORIDE LEVEL 106 MMOL/L (98-107); CREATININE FOR GFR 0.55 MG/DL (0.55-1.30); GLOMERULAR FILTRATION RATE > 60.0 (>39); GLUCOSE, FASTING 90 MG/DL (74-106); POTASSIUM SERUM 3.4 MMOL/L (3.5-5.1); SODIUM LEVEL 141 MMOL/L (136-145)
[2022-04-20] MEDS: IPRATROPIUM 0.5MG/ALBUTEROL 2.5MG INH SOL UD 3ML (DUONEB) NEB SCH ×4 (07:46→19:13)
[2022-04-20] MEDS: ATORVASTATIN 20 MG TAB PO SCH (08:36)
[2022-04-20] MEDS: ASPIRIN 81MG ENTERIC TABLET PO SCH (08:36)
[2022-04-20] MEDS: PANTOPRAZOLE 40MG TAB (PROTONIX) PO SCH (08:36)
[2022-04-20] MEDS: DULoxetine 30MG CAPSULE (CYMBALTA) PO SCH (08:37)
[2022-04-20] MEDS: METOPROLOL TART 50 MG TAB PO SCH ×3 (08:37→20:40)
[2022-04-20] MEDS: POLYVINYL ALCOHOL OPHTH SOLN 15ML (LIQUITEARS) OU SCH ×3 (08:38→20:40)
[2022-04-20] MEDS ORDERED: DULoxetine 30MG CAPSULE (CYMBALTA) PO SCH ×2 (09:00)
[2022-04-20] MEDS ORDERED: APIXABAN 5 MG TAB (ELIQUIS) PO ONE (12:00)
[2022-04-20] MEDS: APIXABAN 5 MG TAB (ELIQUIS) PO SCH (20:40)
[2022-04-21] VITALS (9 sets, daily range): BP systolic 126–149; BP diastolic 63–83; O2SAT 93
[2022-04-21] MEDS: AZTREONAM 2 GM in D5W MINI-BAG PLUS 100 ML IV SCH ×2 (00:14→08:29)
[2022-04-21] MEDS: LEVOTHYROXINE 125MCG TABLET (0.125MG) PO SCH (05:58)
[2022-04-21] MEDS: IPRATROPIUM 0.5MG/ALBUTEROL 2.5MG INH SOL UD 3ML (DUONEB) NEB SCH (08:10)
[2022-04-21] MEDS: ASPIRIN 81MG ENTERIC TABLET PO SCH (08:29)
[2022-04-21] MEDS: APIXABAN 5 MG TAB (ELIQUIS) PO SCH ×2 (08:29→20:59)
[2022-04-21] MEDS: PANTOPRAZOLE 40MG TAB (PROTONIX) PO SCH (08:29)
[2022-04-21] MEDS: DULoxetine 30MG CAPSULE (CYMBALTA) PO SCH (08:29)
[2022-04-21] MEDS: ATORVASTATIN 20 MG TAB PO SCH (08:30)
[2022-04-21] MEDS: POLYVINYL ALCOHOL OPHTH SOLN 15ML (LIQUITEARS) OU SCH ×3 (08:30→21:06)
[2022-04-21] MEDS: METOPROLOL TART 50 MG TAB PO SCH ×3 (08:32→21:02)
[2022-04-21 09:55] LABS: HEMATOCRIT 28.4 % (36.0-47.0); HEMOGLOBIN 9.2 g/dl (12.0-15.5); MEAN CORPUSCULAR HEMOGLOBIN 29.7 pg (27.0-33.0); MEAN CORPUSCULAR HGB CONC 32.4 g/dl (32.0-36.5); MEAN CORPUSCULAR VOLUME 91.6 fl (80.0-96.0); PLATELET COUNT, AUTOMATED 336 10^3/uL (150-450); WHITE BLOOD COUNT 12.9 10^3/uL (4.0-10.0)
[2022-04-21] MEDS ORDERED: COMBIVENT RESPIMAT 100-20MCG INHALER 4GM INH PRN (10:05)
[2022-04-21] MEDS ORDERED: APIXABAN 5 MG TAB (ELIQUIS) PO ONE (10:15)
[2022-04-21 10:18] LABS: BLOOD UREA NITROGEN 16 MG/DL (9-23); CALCIUM LEVEL 8.5 MG/DL (8.3-10.6); CARBON DIOXIDE LEVEL 26 MMOL/L (20-31); CHLORIDE LEVEL 104 MMOL/L (98-107); CREATININE FOR GFR 0.53 MG/DL (0.55-1.30); GLOMERULAR FILTRATION RATE > 60.0 (>39); GLUCOSE, FASTING 124 MG/DL (74-106); POTASSIUM SERUM 3.3 MMOL/L (3.5-5.1); SODIUM LEVEL 138 MMOL/L (136-145)
[2022-04-21 10:59] LABS: MAGNESIUM LEVEL 1.6 MG/DL (1.8-2.4)
[2022-04-21] MEDS: POTASSIUM CHLORIDE 10MEQ SR TABLET PO SCH ×2 (11:07→21:00)
[2022-04-21 18:59] LABS: RSV AMPLIFICATION NEGATIVE (NEGATIVE)
[2022-04-21] MEDS ORDERED: APIXABAN 5 MG TAB (ELIQUIS) PO SCH (21:00)
[2022-04-21] MEDS: MAGNESIUM OXIDE 400MG TAB (MAG-OX) PO SCH (21:06)
[2022-04-22 04:33] VITALS: BP 142/82
[2022-04-22 05:41] LABS: HEMATOCRIT 26.5 % (36.0-47.0); HEMOGLOBIN 8.5 g/dl (12.0-15.5); MEAN CORPUSCULAR HEMOGLOBIN 29.5 pg (27.0-33.0); MEAN CORPUSCULAR HGB CONC 32.1 g/dl (32.0-36.5); PLATELET COUNT, AUTOMATED 343 10^3/uL (150-450); RED BLOOD COUNT 2.88 10^6/uL (4.00-5.40); WHITE BLOOD COUNT 12.9 10^3/uL (4.0-10.0)
[2022-04-22 06:15] LABS: BLOOD UREA NITROGEN 14 MG/DL (9-23); CALCIUM LEVEL 8.4 MG/DL (8.3-10.6); CARBON DIOXIDE LEVEL 25 MMOL/L (20-31); CHLORIDE LEVEL 106 MMOL/L (98-107); CREATININE FOR GFR 0.54 MG/DL (0.55-1.30); GLOMERULAR FILTRATION RATE > 60.0 (>39); GLUCOSE, FASTING 85 MG/DL (74-106); SODIUM LEVEL 140 MMOL/L (136-145)
[2022-04-22] MEDS: LEVOTHYROXINE 125MCG TABLET (0.125MG) PO SCH (06:15)
[2022-04-22] MEDS ORDERED: ACETAMINOPHEN 500 MG TAB PO PRN (07:05)
[2022-04-22 08:16] VITALS: BP 136/76
[2022-04-22] MEDS: ATORVASTATIN 20 MG TAB PO SCH (08:51)
[2022-04-22] MEDS: DULoxetine 30MG CAPSULE (CYMBALTA) PO SCH (08:51)
[2022-04-22] MEDS: METOPROLOL TART 50 MG TAB PO SCH ×3 (08:52→20:24)
[2022-04-22] MEDS: ASPIRIN 81MG ENTERIC TABLET PO SCH (08:52)
[2022-04-22] MEDS: PANTOPRAZOLE 40MG TAB (PROTONIX) PO SCH (08:52)
[2022-04-22] MEDS: APIXABAN 5 MG TAB (ELIQUIS) PO SCH ×2 (08:52→20:24)
[2022-04-22] MEDS: POLYVINYL ALCOHOL OPHTH SOLN 15ML (LIQUITEARS) OU SCH ×3 (08:53→20:24)
[2022-04-22] MEDS: MAGNESIUM OXIDE 400MG TAB (MAG-OX) PO SCH ×2 (08:53→17:09)
[2022-04-22 10:50] LABS: IRON (FE) 49 UG/DL (50-170); PERCENT SATURATION 21.7 % (13.2-45.0); TOTAL IRON BINDING CAPACITY 226 UG/DL (250-425)
[2022-04-22 10:52] LABS: FERRITIN 694.8 NG/ML (7.3-270.7)
[2022-04-22 10:53] LABS: FOLATE 1.64 NG/ML (>5.4)
[2022-04-22 11:06] LABS: VITAMIN B12 LEVEL 799 PG/ML (211-911)
[2022-04-22] MEDS: AUGMENTIN 875 MG TAB PO SCH ×2 (13:06→20:24)
[2022-04-22] MEDS: ONDANSETRON 4MG 2ML VIAL IV PRN ×2 (13:18→18:43)
[2022-04-22 13:33] VITALS: BP 135/75
[2022-04-22] MEDS: FOLIC ACID 1 MG in NS 50 ML IV SCH (17:09)
[2022-04-22 20:00] VITALS: BP 145/70
[2022-04-23] MEDS: LEVOTHYROXINE 125MCG TABLET (0.125MG) PO SCH (05:29)
[2022-04-23 08:00] VITALS: BP 146/76
[2022-04-23] MEDS: ATORVASTATIN 20 MG TAB PO SCH (08:15)
[2022-04-23] MEDS: APIXABAN 5 MG TAB (ELIQUIS) PO SCH ×2 (08:16→20:33)
[2022-04-23] MEDS: ASPIRIN 81MG ENTERIC TABLET PO SCH (08:16)
[2022-04-23] MEDS: DULoxetine 30MG CAPSULE (CYMBALTA) PO SCH (08:16)
[2022-04-23] MEDS: PANTOPRAZOLE 40MG TAB (PROTONIX) PO SCH (08:16)
[2022-04-23] MEDS: METOPROLOL TART 50 MG TAB PO SCH ×3 (08:17→20:33)
[2022-04-23] MEDS: POLYVINYL ALCOHOL OPHTH SOLN 15ML (LIQUITEARS) OU SCH ×3 (08:17→20:35)
[2022-04-23] MEDS: AUGMENTIN 875 MG TAB PO SCH ×2 (09:53→20:33)
[2022-04-23] MEDS: FOLIC ACID 1 MG in NS 50 ML IV SCH (16:10)
[2022-04-23 20:21] VITALS: BP 129/77
[2022-04-24] MEDS: LEVOTHYROXINE 125MCG TABLET (0.125MG) PO SCH (05:40)
[2022-04-24 06:22] VITALS: BP 137/76
[2022-04-24] MEDS: ATORVASTATIN 20 MG TAB PO SCH (08:44)
[2022-04-24] MEDS: AUGMENTIN 875 MG TAB PO SCH (08:44)
[2022-04-24] MEDS: ASPIRIN 81MG ENTERIC TABLET PO SCH (08:44)
[2022-04-24] MEDS: DULoxetine 30MG CAPSULE (CYMBALTA) PO SCH (08:44)
[2022-04-24] MEDS: POLYVINYL ALCOHOL OPHTH SOLN 15ML (LIQUITEARS) OU SCH (08:44)
[2022-04-24 08:45] VITALS: BP 137/76
[2022-04-24] MEDS: APIXABAN 5 MG TAB (ELIQUIS) PO SCH (08:45)
[2022-04-24] MEDS: METOPROLOL TART 50 MG TAB PO SCH (08:45)
[2022-04-24] MEDS: PANTOPRAZOLE 40MG TAB (PROTONIX) PO SCH (08:45)
[2022-04-24] MEDS ORDERED: ELIQ5TAB PO (10:25)
[2022-04-24] MEDS ORDERED: PANT40TA29 PO (10:25)
[2022-04-24] MEDS ORDERED: FOLI1TAB11 PO (10:25)
[2022-04-24] MEDS ORDERED: AMOX875T2 PO (10:25)
[2022-04-25] MEDS ORDERED: FOLIC ACID 1MG TAB PO SCH (09:00)
[2022-04-28] MEDS ORDERED: APIXABAN 5 MG TAB (ELIQUIS) PO SCH (09:00)
== END 2022-04-24 14:15 | disposition home or self-care (01) | DRG 870 ==
LOC: M ED 10:02 → M ED INP 18:00 → M ICU 22:30 → M PCU 04-21 10:21
PROVIDERS: ADMIT Internal Medicine; ATTEND Family Medicine
PROC: 5A1955Z Respiratory Ventilation, Greater than 96 Consecutive Hours (ICD-10-PCS; principal; 2022-04-11)
PROC: B246ZZZ Ultrasonography of Right and Left Heart (ICD-10-PCS; 2022-04-11)
PROC: 0BH17EZ Insertion of Endotracheal Airway into Trachea, Via Natural or Artificial Opening (ICD-10-PCS; 2022-04-11)
PROC: 02HV33Z Insertion of Infusion Device into Superior Vena Cava, Percutaneous Approach (ICD-10-PCS; 2022-04-12)
PROC: 04HY32Z Insertion of Monitoring Device into Lower Artery, Percutaneous Approach (ICD-10-PCS; 2022-04-12)
PROC: 30233N1 Transfusion of Nonautologous Red Blood Cells into Peripheral Vein, Percutaneous Approach (ICD-10-PCS; 2022-04-13)
DX: A41.9 Sepsis, unspecified organism (principal); I21.4 Non-ST elevation (NSTEMI) myocardial infarction; I46.2 Cardiac arrest due to underlying cardiac condition; I26.99 Other pulmonary embolism without acute cor pulmonale; J12.82 Pneumonia due to coronavirus disease 2019; U07.1 COVID-19; R65.21 Severe sepsis with septic shock; R57.0 Cardiogenic shock; K72.00 Acute and subacute hepatic failure without coma; J96.02 Acute respiratory failure with hypercapnia; J18.0 Bronchopneumonia, unspecified organism; J96.01 Acute respiratory failure with hypoxia; E87.21 Acute metabolic acidosis; I24.9 Acute ischemic heart disease, unspecified; K56.7 Ileus, unspecified; I82.621 Acute embolism and thrombosis of deep veins of right upper extremity; E87.3 Alkalosis; I10 Essential (primary) hypertension; E78.5 Hyperlipidemia, unspecified; E03.9 Hypothyroidism, unspecified; I48.91 Unspecified atrial fibrillation; Z79.82 Long term (current) use of aspirin; Z79.890 Hormone replacement therapy; Z79.899 Other long term (current) drug therapy; Z88.1 Allergy status to other antibiotic agents; Z88.8 Allergy status to other drugs, medicaments and biological substances; R73.9 Hyperglycemia, unspecified; I27.20 Pulmonary hypertension, unspecified; I95.9 Hypotension, unspecified

== ENCOUNTER 2024-03-09 10:36 | Day surgery (SDC) | payer MEDICARE, OTHER ==
[~2024-03-09] VITALS: Ht 167.6 cm; Wt 80.3 kg
[~2024-03-09 10:36] MED LIST changes: +AMOX875T2 PO; +ATOR40TA75 PO; +ATOR80TA59 PO; +DULO1CAP6 PO; +ELIQ5TAB PO; +FOLI1TAB11 PO; +LEVO125T4 PO; +NS 250 ML IV ONE; +OMEG10002 PO; +PANT40TA29 PO; +SYNT112T2 PO
[2024-03-09] MEDS ORDERED: propofoL 200 MG/20 ML VIAL As Ordered ONE (12:38)
[2024-03-09] MEDS ORDERED: LIDOCAINE 2% 100MG/5ML SDV (FOR ANES.) As Ordered ONE (12:38)
[2024-03-09] MEDS ORDERED: METOPROLOL 5 MG/5 ML VIAL As Ordered ONE (12:39)
[2024-03-09 13:10] VITALS: TEMP 98
[2024-03-09 13:26] VITALS: BP 108/68; O2SAT 97
== END 2024-03-09 13:44 | disposition home or self-care (01) ==
LOC: M OPP 10:36
PROVIDERS: ATTEND Internal Medicine Gastroenterology
DX: Z12.11 Encounter for screening for malignant neoplasm of colon (principal); K64.0 First degree hemorrhoids; K57.30 Diverticulosis of large intestine without perforation or abscess without bleeding; K29.50 Unspecified chronic gastritis without bleeding; K21.9 Gastro-esophageal reflux disease without esophagitis; R12 Heartburn; Z86.0100 Personal history of colon polyps, unspecified; Z80.0 Family history of malignant neoplasm of digestive organs; Z87.19 Personal history of other diseases of the digestive system; I10 Essential (primary) hypertension; E78.00 Pure hypercholesterolemia, unspecified; E03.9 Hypothyroidism, unspecified; Z86.711 Personal history of pulmonary embolism; Z79.890 Hormone replacement therapy; Z79.899 Other long term (current) drug therapy; Z79.01 Long term (current) use of anticoagulants; Z88.8 Allergy status to other drugs, medicaments and biological substances; Z88.1 Allergy status to other antibiotic agents; Z86.74 Personal history of sudden cardiac arrest
CPT/HCPCS: 43239; 88305; 93005; G0105